=== PATIENT | male | born 2000 | race Caucasian/White ===

== ENCOUNTER 2020-09-11 02:13 | Emergency (ER) | payer OTHER ==
[~2020-09-11] VITALS: Ht 172.7 cm; Wt 63.6 kg
[2020-09-11 02:21] VITALS: TEMP 98.4
[2020-09-11] MEDS ORDERED: ATARAX 25MG25 MG/TAB PO (03:03)
[2020-09-11 03:15] LABS: BASO % 0.1 % (0.0-2.0); GRAN % 72.7 % (42.2-75.2); HEMATOCRIT 43.8 % (36.0-47.0); HEMOGLOBIN 15.7 g/dl (12.5-16.1); LYMPH # 1.5 (1.2-3.4); LYMPH % 21.9 % (20.0-51.0); MEAN CELL VOLUME 86 fl (80.0-95.0); MEAN CORPUSCULAR HEMOGLOBIN 31 pg (26.0-32.0); MEAN CORPUSCULAR HGB CONC 36 g/dl (33.0-37.0); MONO # 0.3 (0.1-0.6); PLATELET COUNT 206 K/mm3 (130-400); RED BLOOD COUNT 5.09 M/mm3 (4.20-5.60); REDCELL DISTRIBUTION WIDTH-CV 11.7 % (11.5-14.5)
[2020-09-11 03:18] LABS: MUCOUS Present /lpf; PH 7 (5-8); SQUAMOUS EPITHELIAL None Seen /hpf; URINE APPEARANCE Clear; URINE BACTERIA None Seen /hpf; URINE BILIRUBIN Negative (NEGATIVE); URINE BLOOD Negative (NEGATIVE); URINE COLOR Yellow; URINE GLUCOSE Negative (NEGATIVE); URINE KETONE Negative (NEGATIVE); URINE LEUKOCYTE ESTERASE Negative (NEGATIVE); URINE NITRATE Negative (NEGATIVE); URINE PROTEIN(semi-quant) Negative (NEGATIVE); URINE RBC None Seen /hpf; URINE UROBILINOGEN Negative (NEGATIVE); URINE WBC None Seen /hpf
[2020-09-11 03:23] LABS: TRICYCLIC ANTIDEPRESS URINE NEGATIVE
[2020-09-11 03:27] LABS: ALANINE AMINOTRANSFERASE 18 U/L (4-49); ALBUMIN 4.8 gm/dL (3.5-5.0); ALKALINE PHOSPHATASE 73 U/L (50-136); ANION GAP 9 mmol/L (7-16); AST,SGOT 29 U/L (15-37); BILIRUBIN,TOTAL 0.9 mg/dL (0.0-1.0); BLOOD UREA NITROGEN 10 mg/dL (9-20); CALCIUM 9.6 mg/dL (8.4-10.2); CARBON DIOXIDE 28 mmol/L (22-30); CHLORIDE 103 mmol/L (98-107); CREATININE, serum 0.96 (0.66-1.25); GLUCOSE 111 mg/dL (74-106); SODIUM 140 mmol/L (137-145); TOTAL PROTEIN 7.7 gm/dL (6.4-8.2)
[2020-09-11 03:34] LABS: COLLECTION METHOD CLEAN CATCH
[2020-09-11 03:39] LABS: TROPONIN-I < 0.012 ng/mL (0.000-0.035)
[2020-09-11 04:58] VITALS: BP 116/71; PULSE 78
== END 2020-09-11 05:00 | disposition home or self-care (01) ==
LOC: COL.ER 02:13
PROVIDERS: Emergency Medicine
DX: F41.9 Anxiety disorder, unspecified (principal); R00.2 Palpitations; G47.00 Insomnia, unspecified; R11.0 Nausea
CPT/HCPCS: J2060; J2405; J7030